=== PATIENT | female | born 2000 | race Caucasian/White ===

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

== ENCOUNTER 2022-01-20 10:55 | Emergency (ER) | payer MEDICAID ==
[2022-01-20 11:31] LABS: ESTIMATED GFR 133 mL/min (>60)
[2022-01-20 12:46] VITALS: BP 99/60
== END 2022-01-20 11:57 | disposition home or self-care (01) ==
LOC: FB.ED 10:55
DX: G40.909 Epilepsy, unspecified, not intractable, without status epilepticus (principal)
CPT/HCPCS: 36415; 80053; 85025; 99284

== ENCOUNTER 2022-05-06 11:52 | Emergency (ER) | payer MEDICAID ==
[2022-05-06] MEDS: LORazepam 2 MG/ML SDV IVPUSH ONE (13:04)
[2022-05-06 14:48] VITALS: BP 110/71
[2022-05-06 14:49] VITALS: PULSE 82
== END 2022-05-06 13:45 ==
LOC: FB.ED 11:52
DX: G40.909 Epilepsy, unspecified, not intractable, without status epilepticus (principal); J45.909 Unspecified asthma, uncomplicated; Z79.899 Other long term (current) drug therapy
CPT/HCPCS: 96374; 99283; J2060

== ENCOUNTER 2023-01-23 19:04 | Emergency (ER) | payer MEDICAID | END 2023-01-23 19:30 | disposition home or self-care (01) | LOC: FB.ED 19:04 | DX: S00.83XA Contusion of other part of head, initial encounter (principal); R56.9 Unspecified convulsions; J45.909 Unspecified asthma, uncomplicated; Z79.51 Long term (current) use of inhaled steroids; W17.89XA Other fall from one level to another, initial encounter | CPT/HCPCS: 99283 ==

== ENCOUNTER 2023-09-25 19:31 | Observation (INO) | payer MEDICAID ==
[2023-09-25] MEDS: Sodium Chloride 0.9% 1,000 ML IV SCH ×2 (19:35→21:24)
[2023-09-25] MEDS ORDERED: Sodium Chloride 0.9% 10 ML Syringe FLUSH PRN (19:37)
[2023-09-25 19:54] LABS: BASOPHILS PERCENT AUTO 0.7 % (0.2-1.5); EOSINOPHILS ABSOLUTE AUTO 0.3 x10-3/uL (0.0-0.8); EOSINOPHILS PERCENT AUTO 6.2 % (0.6-8.1); HEMATOCRIT 39.5 % (34.2-48.2); HEMOGLOBIN 13.4 g/dL (11.4-15.5); LYMPHOCYTES ABSOLUTE AUTO 1.4 x10-3/uL (1.0-4.4); LYMPHOCYTES PERCENT AUTO 29.2 % (18.4-52.1); MEAN CORPUSCULAR HEMOGLOBIN 32.9 pg (23.9-33.9); MEAN CORPUSCULAR HGB CONC 33.8 g/dL (31.9-34.8); MEAN CORPUSCULAR VOLUME 97.4 fL (76.7-100.5); MEAN PLATELET VOLUME 7.7 fL (7.1-12.4); MONOCYTES ABSOLUTE AUTO 0.3 x10-3/uL (0.3-1.0); MONOCYTES PERCENT AUTO 5.5 % (4.4-15.7); NEUTROPHILS ABSOLUTE AUTO 2.7 x10-3/uL (1.5-6.3); NEUTROPHILS PERCENT AUTO 58.4 % (30.8-76.2); PLATELET COUNT,PLT 226 x10(3)uL (151-488); RED BLOOD CELL COUNT 4.05 x10(6)uL (3.60-5.20); RED CELL DISTRIBUTION WIDTH 11.7 % (12.3-16.5); WHITE BLOOD CELL COUNT,WBC 4.7 x10-3/uL (3.0-10.3)
[2023-09-25] MEDS: levETIRAcetam in NaCl (iso-os) 1,500 MG in Premix Bag 100 BAG IV ONE (19:57)
[2023-09-25 19:58] LABS: BLOOD UREA NITROGEN,BUN 9 mg/dL (7-18); BUN/CREATININE RATIO 11.3 (9-20); CALCIUM 8.5 mg/dL (8.6-10.2); CARBON DIOXIDE,CO2 22 mmol/L (21-32); CHLORIDE,CL 103 mmol/L (100-110); CREATININE 0.8 mg/dL (0.55-1.02); ESTIMATED GFR 107 mL/min (>60); GLUCOSE RANDOM 137 mg/dL (80-116); POTASSIUM,K 3.4 mmol/L (3.5-5.3); SODIUM,NA 139 mmol/L (135-145)
[2023-09-25 20:03] LABS: A/G RATIO 1.1; ALANINE AMINOTRANSFERASE,ALT 28 U/L (12-36); ALBUMIN 3.5 g/dL (3.5-5.2); ALKALINE PHOSPHATASE 70 IU/L (56-112); ASPARTATE AMNIOTRANSFERASE,AST 14 IU/L (5-25); BILIRUBIN TOTAL 0.2 mg/dL (0.1-1.3); PROTEIN TOTAL,TP 6.7 g/dL (6.0-8.0)
[2023-09-25] MEDS ORDERED: Ondansetron 4 MG/2 ML SDV IV PRN (20:44)
[2023-09-25] MEDS: LORazepam 2 MG/ML SDV IVPUSH PRN (21:22)
[2023-09-25] MEDS: Magnesium Sulfate/Water 4 GM in Premix Bag 1 BAG IV ONE (21:22)
[2023-09-26 07:01] LABS: HEMATOCRIT 39.7 % (34.2-48.2); HEMOGLOBIN 13.6 g/dL (11.4-15.5); MEAN CORPUSCULAR HEMOGLOBIN 33.1 pg (23.9-33.9); MEAN CORPUSCULAR HGB CONC 34.2 g/dL (31.9-34.8); MEAN CORPUSCULAR VOLUME 96.7 fL (76.7-100.5); RED BLOOD CELL COUNT 4.11 x10(6)uL (3.60-5.20); RED CELL DISTRIBUTION WIDTH 11.3 % (12.3-16.5); WHITE BLOOD CELL COUNT,WBC 4.9 x10-3/uL (3.0-10.3)
[2023-09-26 07:08] LABS: ALANINE AMINOTRANSFERASE,ALT 26 U/L (12-36); ALBUMIN 3.3 g/dL (3.5-5.2); ALKALINE PHOSPHATASE 73 IU/L (56-112); ASPARTATE AMNIOTRANSFERASE,AST 19 IU/L (5-25); BILIRUBIN TOTAL 0.2 mg/dL (0.1-1.3); BLOOD UREA NITROGEN,BUN 6 mg/dL (7-18); CARBON DIOXIDE,CO2 30 mmol/L (21-32); CHLORIDE,CL 110 mmol/L (100-110); CREATININE 0.4 mg/dL (0.55-1.02); ESTIMATED GFR 144 mL/min (>60); GLUCOSE RANDOM 78 mg/dL (80-116); MAGNESIUM 2.3 mg/dL (1.8-2.5); POTASSIUM,K 3.8 mmol/L (3.5-5.3); PROTEIN TOTAL,TP 6.5 g/dL (6.0-8.0); SODIUM,NA 143 mmol/L (135-145)
[2023-09-26] MEDS ORDERED: LORazepam 2 MG/ML SDV IVPUSH PRN (12:43)
[2023-09-26] MEDS: levETIRAcetam in NaCl (iso-os) 1,500 MG in Premix Bag 1 BAG IV ONE (13:10)
[2023-09-26 13:24] VITALS: BP 96/58; PULSE 89
== END 2023-09-26 14:30 ==
LOC: FB.ED 19:31 → FB.MS 21:20
PROVIDERS: ADMIT Family Medicine; ATTEND Internal Medicine
DX: G40.401 Other generalized epilepsy and epileptic syndromes, not intractable, with status epilepticus (principal); E83.42 Hypomagnesemia; G80.9 Cerebral palsy, unspecified; J45.909 Unspecified asthma, uncomplicated; Z79.899 Other long term (current) drug therapy
CPT/HCPCS: 36415; 80053; 83735; 85025; 85027; 92610; 93005; J1953; J2060; J3475; J7030; 93010; 99222; 99238; 99285

== ENCOUNTER 2023-11-15 18:02 | Emergency (ER) | payer MEDICAID ==
[2023-11-15 18:44] LABS: BASOPHILS PERCENT AUTO 0.9 % (0.2-1.5); EOSINOPHILS ABSOLUTE AUTO 0.1 x10-3/uL (0.0-0.8); EOSINOPHILS PERCENT AUTO 1.5 % (0.6-8.1); HEMATOCRIT 42.2 % (34.2-48.2); HEMOGLOBIN 14.2 g/dL (11.4-15.5); LYMPHOCYTES ABSOLUTE AUTO 1.2 x10-3/uL (1.0-4.4); LYMPHOCYTES PERCENT AUTO 27.5 % (18.4-52.1); MEAN CORPUSCULAR HEMOGLOBIN 32.5 pg (23.9-33.9); MEAN CORPUSCULAR HGB CONC 33.6 g/dL (31.9-34.8); MEAN CORPUSCULAR VOLUME 96.6 fL (76.7-100.5); MONOCYTES ABSOLUTE AUTO 0.3 x10-3/uL (0.3-1.0); MONOCYTES PERCENT AUTO 6.2 % (4.4-15.7); NEUTROPHILS ABSOLUTE AUTO 2.9 x10-3/uL (1.5-6.3); NEUTROPHILS PERCENT AUTO 63.9 % (30.8-76.2); PLATELET COUNT,PLT 208 x10(3)uL (151-488); RED BLOOD CELL COUNT 4.37 x10(6)uL (3.60-5.20); RED CELL DISTRIBUTION WIDTH 12.5 % (12.3-16.5); WHITE BLOOD CELL COUNT,WBC 4.5 x10-3/uL (3.0-10.3)
[2023-11-15 18:46] LABS: BLOOD UREA NITROGEN,BUN 8 mg/dL (7-18); BUN/CREATININE RATIO 11.4 (9-20); CALCIUM 9.2 mg/dL (8.6-10.2); CARBON DIOXIDE,CO2 27 mmol/L (21-32); CHLORIDE,CL 103 mmol/L (100-110); CREATININE 0.7 mg/dL (0.55-1.02); ESTIMATED GFR 126 mL/min (>60); GLUCOSE RANDOM 122 mg/dL (80-116); POTASSIUM,K 3.6 mmol/L (3.5-5.3); SODIUM,NA 141 mmol/L (135-145)
[2023-11-15 18:57] LABS: A/G RATIO 1.2; ALANINE AMINOTRANSFERASE,ALT 45 U/L (12-36); ALBUMIN 4.1 g/dL (3.5-5.2); ALKALINE PHOSPHATASE 85 IU/L (56-112); ASPARTATE AMNIOTRANSFERASE,AST 30 IU/L (5-25); BILIRUBIN TOTAL 0.3 mg/dL (0.1-1.3); PROTEIN TOTAL,TP 7.4 g/dL (6.0-8.0)
[2023-11-15] MEDS: LORazepam 2 MG/ML SDV IVPUSH ONE (20:57)
[2023-11-15] MEDS: Sodium Chloride 0.9% 10 ML Syringe FLUSH PRN (20:58)
[2023-11-15] MEDS: [UNRECOGNIZED DRUG - OTHER] IV ONE (21:13)
[2023-11-15] MEDS: FOSPHENYTOIN IV ONE (21:13)
[2023-11-15] MEDS: SODIUM CHLORIDE IV ONE (21:13)
[2023-11-15] MEDS ORDERED: Sodium Phosphate,Monobasic/Sodium Phosphate,Dibasic Enema 133 ML Bottle RECTAL PRN (23:31)
[2023-11-15] MEDS ORDERED: Non-Formulary Medication 1 Each (Diazepam [Diastat Rectal Gel] 10 MG Syringe) RECTAL PRN (23:31)
[2023-11-15] MEDS ORDERED: Cetirizine 10 MG Tab PO PRN (23:31)
[2023-11-16] MEDS ORDERED: LORazepam 2 MG/ML SDV IVPUSH PRN (00:55)
[2023-11-16] MEDS: CLOBAZAM 20 MG PO SCH (01:35)
[2023-11-16] MEDS: Lacosamide 100 MG Tab PO SCH (01:39)
[2023-11-16] MEDS: FELBAMATE 600 MG PO SCH ×2 (01:49→08:15)
[2023-11-16] MEDS ORDERED: Polyethylene Glycol 3350 Powder 17 GM Packet PO PRN (08:00)
[2023-11-16] MEDS ORDERED: FELBAMATE 600 MG PO SCH ×5 (08:00→20:00)
[2023-11-16] MEDS: Magnesium Oxide 400 MG Tab PO SCH (08:14)
[2023-11-16] MEDS: Calcium Carbonate 500 MG Tablet PO SCH (08:14)
[2023-11-16] MEDS: Docusate Sodium 100 MG Cap PO SCH (08:15)
[2023-11-16] MEDS ORDERED: THC PO SCH ×2 (09:00)
[2023-11-16] MEDS ORDERED: CLOBAZAM 20 MG PO SCH (09:00)
[2023-11-16] MEDS ORDERED: [UNRECOGNIZED DRUG - OTHER] PO SCH ×2 (09:00)
[2023-11-16] MEDS ORDERED: CBD PO SCH ×2 (09:00)
[2023-11-16] MEDS ORDERED: Lacosamide 100 MG Tab PO SCH (09:00)
[2023-11-16] MEDS: FOSPHENYTOIN IV ONE (10:36)
[2023-11-16] MEDS: SODIUM CHLORIDE IV ONE (10:36)
[2023-11-16] MEDS: [UNRECOGNIZED DRUG - OTHER] IV ONE (10:36)
[2023-11-16 11:22] VITALS: BP 103/78; PULSE 92
[2023-11-16] MEDS ORDERED: Multivitamin, Childrens Tab.Chew PO SCH (15:00)
[2023-11-16] MEDS ORDERED: traZODone 50 MG Tab PO SCH (21:00)
== END 2023-11-16 11:06 | disposition home or self-care (01) ==
LOC: FB.ED 18:02
DX: G40.909 Epilepsy, unspecified, not intractable, without status epilepticus (principal); S09.90XA Unspecified injury of head, initial encounter; S00.03XA Contusion of scalp, initial encounter; J45.909 Unspecified asthma, uncomplicated; Z79.899 Other long term (current) drug therapy; X58.XXXA Exposure to other specified factors, initial encounter
CPT/HCPCS: 36415; 70450; 80053; 85025; 96365; 96366; 96367; 96375; 99285; A9270; J1953; J2060; J3490; Q2009; 99284

== ENCOUNTER 2024-12-06 15:38 | Emergency (ER) | payer MEDICAID ==
[2024-12-06 16:40] LABS: APPEARANCE,URINE SLIGHTLY CLOUDY (CLEAR); GLUCOSE,URINE NORMAL (NORMAL); OCCULT BLOOD,URINE NEGATIVE (NEGATIVE)
[2024-12-06 16:42] LABS: BASOPHILS ABSOLUTE AUTO 0.0 x10-3/uL (0.0-0.1); BASOPHILS PERCENT AUTO 0.4 % (0.2-1.5); BLOOD UREA NITROGEN,BUN 17 mg/dL (7-18); CARBON DIOXIDE,CO2 29 mmol/L (21-32); CHLORIDE,CL 105 mmol/L (100-110); CREATININE 0.8 mg/dL (0.55-1.02); EOSINOPHILS ABSOLUTE AUTO 0.1 x10-3/uL (0.0-0.8); EOSINOPHILS PERCENT AUTO 2.5 % (0.6-8.1); ESTIMATED GFR 107 mL/min (>60); GLUCOSE RANDOM 103 mg/dL (80-116); LYMPHOCYTES ABSOLUTE AUTO 1.3 x10-3/uL (1.0-4.4); LYMPHOCYTES PERCENT AUTO 30.0 % (18.4-52.1); MEAN PLATELET VOLUME 8.1 fL (7.1-12.4); MONOCYTES ABSOLUTE AUTO 0.4 x10-3/uL (0.3-1.0); MONOCYTES PERCENT AUTO 9.1 % (4.4-15.7); NEUTROPHILS ABSOLUTE AUTO 2.6 x10-3/uL (1.5-6.3); NEUTROPHILS PERCENT AUTO 58.0 % (30.8-76.2); PLATELET COUNT,PLT 215 x10(3)uL (151-488); POTASSIUM,K 3.9 mmol/L (3.5-5.3); RED BLOOD CELL COUNT 3.90 x10(6)uL (3.60-5.20); RED CELL DISTRIBUTION WIDTH 11.9 % (12.3-16.5); SODIUM,NA 141 mmol/L (135-145); WHITE BLOOD CELL COUNT,WBC 4.4 x10-3/uL (3.0-10.3)
[2024-12-06 16:47] LABS: A/G RATIO 1.3; ALANINE AMINOTRANSFERASE,ALT 35 U/L (12-36); ASPARTATE AMNIOTRANSFERASE,AST 41 IU/L (5-25); BILIRUBIN TOTAL 0.2 mg/dL (0.1-1.3); PROTEIN TOTAL,TP 6.6 g/dL (6.0-8.0)
[2024-12-06 18:24] VITALS: BP 108/53; PULSE 94
== END 2024-12-06 17:28 | disposition home or self-care (01) ==
LOC: FB.ED 15:38
DX: R33.9 Retention of urine, unspecified (principal); Z91.048 Other nonmedicinal substance allergy status; Z79.899 Other long term (current) drug therapy
CPT/HCPCS: 36415; 51701; 80053; 81003; 85025; 99283; A4353

== ENCOUNTER 2025-04-09 15:51 | Emergency (ER) | payer MEDICAID ==
[2025-04-09 17:04] LABS: GLUCOSE,URINE NORMAL (NORMAL); OCCULT BLOOD,URINE LARGE (NEGATIVE)
[2025-04-09 17:08] LABS: BASOPHILS ABSOLUTE AUTO 0.0 x10-3/uL (0.0-0.1); BASOPHILS PERCENT AUTO 0.6 % (0.2-1.5); EOSINOPHILS ABSOLUTE AUTO 0.0 x10-3/uL (0.0-0.8); EOSINOPHILS PERCENT AUTO 0.8 % (0.6-8.1); LYMPHOCYTES ABSOLUTE AUTO 1.2 x10-3/uL (1.0-4.4); LYMPHOCYTES PERCENT AUTO 20.7 % (18.4-52.1); MEAN PLATELET VOLUME 7.6 fL (7.1-12.4); MONOCYTES ABSOLUTE AUTO 0.5 x10-3/uL (0.3-1.0); MONOCYTES PERCENT AUTO 8.3 % (4.4-15.7); NEUTROPHILS ABSOLUTE AUTO 4.1 x10-3/uL (1.5-6.3); NEUTROPHILS PERCENT AUTO 69.6 % (30.8-76.2); PLATELET COUNT,PLT 252 x10(3)uL (151-488); RED BLOOD CELL COUNT 4.08 x10(6)uL (3.60-5.20); RED CELL DISTRIBUTION WIDTH 11.7 % (12.3-16.5); WHITE BLOOD CELL COUNT,WBC 5.9 x10-3/uL (3.0-10.3)
[2025-04-09 17:10] LABS: BLOOD UREA NITROGEN,BUN 16 mg/dL (7-18); CARBON DIOXIDE,CO2 29 mmol/L (21-32); CHLORIDE,CL 102 mmol/L (100-110); CREATININE 0.6 mg/dL (0.55-1.02); ESTIMATED GFR 129 mL/min (>60); GLUCOSE RANDOM 87 mg/dL (80-116); POTASSIUM,K 3.9 mmol/L (3.5-5.3); SODIUM,NA 140 mmol/L (135-145)
[2025-04-09 17:12] LABS: APPEARANCE,URINE CLEAR (CLEAR)
[2025-04-09 17:13] LABS: SQUAMOUS EPITHELIAL CELLS,UR RARE (NS,R,O)
[2025-04-09 17:16] LABS: A/G RATIO 1.4; ALANINE AMINOTRANSFERASE,ALT 41 U/L (12-36); ASPARTATE AMNIOTRANSFERASE,AST 42 IU/L (5-25); BILIRUBIN TOTAL 0.4 mg/dL (0.1-1.3); PROTEIN TOTAL,TP 7.1 g/dL (6.0-8.0)
[2025-04-09 18:46] VITALS: BP 102/65; PULSE 111
== END 2025-04-09 18:47 ==
LOC: FB.ED 15:51
DX: S00.83XA Contusion of other part of head, initial encounter (principal); G40.909 Epilepsy, unspecified, not intractable, without status epilepticus; G40.812 Lennox-Gastaut syndrome, not intractable, without status epilepticus; J45.909 Unspecified asthma, uncomplicated; Z91.048 Other nonmedicinal substance allergy status; Z79.899 Other long term (current) drug therapy; W19.XXXA Unspecified fall, initial encounter
CPT/HCPCS: 36415; 70450; 70486; 72125; 80053; 81001; 81025; 83735; 85025; 86140; 99285